=== PATIENT | male | born 1945 | race Caucasian/White ===

== ENCOUNTER 2025-04-18 07:31 | Day surgery (SDC) | payer OTHER, SELFPAY ==
[2025-04-18] VITALS (12 sets, daily range): BP systolic 96–151; BP diastolic 64–86; BMI 24.3
[2025-04-18 09:02] LABS: Magnesium 2.0 mg/dl (1.6-2.3)
[2025-04-18 11:27] LABS: ACT-LR - POC 340 Seconds (116-155)
--- NOTE | 2025-04-18 12:33 | ITS.CL.ABL ---
Sales Associate Cashier - Ablation
Ablation
Procedure Report:
ELECTROPHYSIOLOGIC STUDY AND POSSIBLE ABLATION
DATE: April 18, 2025
Primary Care Provider: Jud Mejia MD
Primary Corporation Officer: Arpan House MD
INDICATION:
Symptomatic Atrial Fibrillation.
Persistent
HISTORY: See H and P.
Symptomatic AF, poorly controlled with attempted medical therapy.
He underwent PVI in 2017 and did well for a number of years but is once again recurred with symptomatic atrial fibrillation.
HAS-BLED: 2
Age
Abnormal Renal Function
CHADSVASc: 3
HTN
Age
PRESENTING RHYTHM: SR
HISTORY: See H and P.
Symptomatic AF, poorly controlled with attempted medical therapy.
ANTIARRHYTHMIC DRUG: Amiodarone 200 mg daily
ANTICOAGULATION: Apixaban 5 mg twice daily
'TIME-OUT': called and confirmed.
SEDATION/ANESTHESIA: provided via the anesthesia department using general anesthesia.
PROCEDURE:
Ultrasound Guidance with real-time visualization of needle insertion and vessel patency performed by ri for femoral venous Vascular Access.
Under real-time US guidance, the needle was advanced with negative pressure into the vein. The needle was seen entering the vessel lumen with a good return of dark red flow, the syringe was removed, non-pulsatile, dark red blood low was noted and
the wire was passed without difficulty, then the needle was removed. US confirmed the wire was in the vein, not going into an artery,
Images were taken and saved for the patient's permanent record. Imaging findings typical femoral venous anatomy. Direct visualization of needle puncture into the femoral vein was observed and recorded.
A decapolar CS catheter was placed within the CS for mapping and pacing.
The intracardiac ultrasound catheter was positioned in the RA for continuous intracardiac ultrasound imaging.
Heparin bolus and infusion to target ACT at 300 -350 seconds was administered. Transseptal puncture was performed. This entailed advancing a sheath with dilator into the superior vena cava and withdrawing both (monitoring intracardiac ultrasound,
fluoroscopy and tip pressure) with the tip oriented toward the atrial septum. The fossa ovalis was engaged (indicated by sudden displacement of the sheath tip as well as tenting of the fossa seen on intracardiac ultrasound).
Transseptal puncture was performed. Left atrial catheter position was confirmed by echocardiographic imaging, pressure monitoring (LA mean pressure 6 mm Hg) and fluoroscopy. The sheath was advanced over the dilator and positioned in the left
atrium.
The Sphere 9 multipolar mapping/ablation Sphere-9 catheter was positioned through the transseptal sheath for high density mapping.
Geometry and voltage mapping was performed using the [employer] mapping system for three-dimensional electroanatomical mapping.
Catheter positioning was guided and confirmed using both I.C.E. and fluoroscopy.
High density electroanatomical three-dimensional mapping demonstrated 4 PVs: LSPV, LIPV, RSPV, RIPV.
Ablation strategy included PVI as well as mapping for extra PV contributors to atrial fibrillation which would also be targeted if present.
There is reconnection of the right inferior pulmonary vein towards its inferior quadrant. This was addressed with delivery of pulsed electric field energy via the sphere 9 catheter.
After accomplishing pulmonary venous isolation, mapping identified additional areas likely to be extra PV contributors to atrial fibrillation. These areas demonstrated patchy low voltage as well as complex fractionated electrograms. These areas can
be sites for the formation of rotors which can drive and maintain atrial fibrillation. These areas are known to be significant contributors to initiation and perpetuation of atrial fibrillation.
Additional energy applications/additional ablation sets targeted extra PV contributors to atrial fibrillation.
Targets for additional PFA ablation included:
LA posterior wall targeted with pulsed electric field energy isolating the posterior wall of the left atrium
After ablation of the posterior wall, additional targets were addressed:
The ridge of tissue between the left atrial appendage and the left sided pulmonary veins (Ligament of Alverto )
These areas were ablated using pulsed electric field energy eliminating the extra PV contributors to atrial fibrillation.
Post ablation mapping finds entrance and exit block at each of the pulmonary veins, the LA posterior wall and at the additional lines at the Ligament of Marshal rendering the sites no longer able to contribute to atrial fibrillation.
Programmed electrostimulation including burst atrial pacing as well the delivery of decremental extrastimuli down to atrial effective refractory period and no sustained arrhythmias could be induced.
I.C.E. :
Pre-Ablation Post-Ablation
LVEF: 50 % 50 %
WMA: none none
Pericardial effusion: none none
LA Pressure (mmHg) 6 12
Fluoroscopic imaging finds no change in the fluoroscopic appearance of the atrial and ventricular leads.
The Biotronik dual-chamber permanent pacemaker was interrogated at the beginning of the study and again at the end of the study. There is no change in device function, there is normal function of the generator as well as the atrial and ventricular
leads. Patient remains DDD-CLS 60 - 130 ppm.
COMPLICATIONS:
none
SUMMARY:
- Mapping and ablation to isolate the PVs resulting in electrical isolation of the pulmonary veins
- Additional AF ablation sets X 2 after PVI (LA posterior wall, ligament of Alverto) resulting in elimination of the targeted extra PV contributors to atrial fibrillation.
- 3-D Electroanatomical Mapping
- Intracardiac Ultrasound
- Ultrasound guidance for vascular access
Post ablation, I discussed today's findings and results with the patient's , Mary.
RECOMMENDATIONS:
- Observe in monitored bed.
- Maintain oral anticoagulation.
- Continue amiodarone for approximately 4 months. At his office visit with us on August 09 we will interrogate his permanent pacemaker. If there has been no recurrence of sustained atrial fibrillation our plan would be to stop amiodarone
- Post ablation office visit with KEVEN Maynard August 09, 2025
- Continue cardiovascular care with Dr. Arpan House
Copy to:
Primary Care Provider: Jud Mejia MD
Primary Corporation Officer: Arpan House MD
--- NOTE | 2025-04-18 16:00 | W.PN.UPDATE ---
Update Note
Progress Note Update
Pt seen post PFA. Right groin site without ht/bleeding. Post EKG AVPaced 77, as before, no acute changes. Resume keenan tonrenetta. Will continue amiodarone until Cardiology followup in 3 months w/Dr. House. Home today if groin site/tele remain
stable.
== END 2025-04-18 17:00 | disposition home or self-care (01) ==
LOC: CATH 07:31
PROVIDERS: ATTENDING PHYSICIAN Internal Medicine Cardiovascular Disease; FAMILY PHYSICIAN Physician Assistant; OTHER PHYSICIAN Internal Medicine Interventional Cardiology
DX: I48.19 Other persistent atrial fibrillation (principal); Z79.01 Long term (current) use of anticoagulants; Z79.899 Other long term (current) drug therapy; I10 Essential (primary) hypertension
CPT/HCPCS: C1733; C1894; C1766; C1769; C1892; C1730; 83735; 86850; 86900; 86901; 93005; 93656; 93657